=== PATIENT | male | born 1945 | race Caucasian/White ===

== ENCOUNTER → 2020-11-08 | Outpatient (CLI) | payer MEDICARE ==
--- NOTE | 2020-11-08 10:46 | XR ---
EXAMINATION TYPE: XR chest 2V DATE OF EXAM: 11/08/2020 COMPARISON: NONE HISTORY: Shortness of breath TECHNIQUE: Frontal and lateral views of the chest are obtained. FINDINGS: Scattered senescent parenchymal changes noted. Hyperinflation compatible with COPD. No evidence for infiltrate. No evidence for atelectasis. Heart size is stable. Mediastinal structures are stable and grossly unremarkable. No evidence for hilar prominence. Degenerative changes dorsal spine. IMPRESSION: 1. No evidence for acute pulmonary disease.
[2020-11-08 10:51] LABS: Basophils % (A) 0 %; Eosinophils # (A) 0.2 k/uL (0-0.7); Eosinophils % (A) 3 %; HGB 14.4 gm/dL (13.0-17.5); Lymphocytes # (A) 1.5 k/uL (1.0-4.8); Lymphocytes % (A) 22 %; MCH 32.8 pg (25.0-35.0); MCHC 33.5 g/dL (31.0-37.0); MCV 97.8 fL (80.0-100.0); Mean Platelet Volume 9.2; Monocytes # (A) 0.3 k/uL (0-1.0); Monocytes % (A) 5 %; Neutrophils # (A) 4.7 k/uL (1.3-7.7); Neutrophils % (A) 69 %; Platelet Count 178 k/uL (150-450); RBC 4.39 m/uL (4.30-5.90); RDW 12.9 % (11.5-15.5); WBC 6.9 k/uL (3.8-10.6)
[2020-11-08 15:11] LABS: Prothrombin Time 10.8 sec (9.9-11.9)
[2020-11-08 15:13] LABS: Anion Gap 5.2 mmol/L (4.00-12.00); Carbon Dioxide 26.8 mmol/L (21.6-31.8); Potassium 4.9 mmol/L (3.5-5.5)
== END | disposition home or self-care (01) ==
LOC: LABWHC1 09:56
PROVIDERS: ATTEND Orthopaedic Surgery
DX: Z22.322 Carrier or suspected carrier of Methicillin resistant Staphylococcus aureus (principal); M50.222 Other cervical disc displacement at C5-C6 level; Z79.01 Long term (current) use of anticoagulants
CPT/HCPCS: 36415; 71046; 80051; 85025; 85610; 87070

== ENCOUNTER 2020-11-16 06:15 | Day surgery (SDC) | payer MEDICARE ==
[2020-11-12 11:21] VITALS: BMI 28.3
--- NOTE | 2020-11-15 14:20 | P.HPOR ---
History of Present Illness H&P Date: 11/16/20 Chief Complaint: RUE weakness, pain, neck pain Patient presents today for a follow up on his C5-6 stenosis. This is his pre- operative appointment. Patient states that he started to have neck pain about 4 months ago after digging in his yard. He reports right scapular pain that radiates into his neck and radiates down his right upper extremity. He denies any numbness. He completed 5 weeks of physical therapy with some relief. Patient currently is not taking any medication for pain. He was taking motrin and went through a dose pack which also helped him with pain. He denies any issues with fine motor skills. He denies any issues with imbalance, but does state his R arm is weaker now than his L and he is unsure why. Denies any f/c/sob/cp at this time. No bowel or bladder incontinence. No perineal numbness/tingling. The patients' past social, medical, family, surgical history, as well as review of systems, have been reviewed. Please refer to the Neurosurgery History and Physical form that has been scanned in to our electronic medical record system. 14 points review of systems completed and as stated in HPI, all other systems reviewed are negative. Review of Systems 14 points review of systems completed and as stated in HPI, all other systems reviewed are negative. Past Medical History Past Medical History: Diabetes Mellitus, Hyperlipidemia History of Any Multi-Drug Resistant Organisms: None Reported Additional Past Surgical History / Comment(s): vasectomy Past Anesthesia/Blood Transfusion Reactions: No Reported Reaction Past Psychological History: No Psychological Hx Reported Past Alcohol Use History: None Reported Past Drug Use History: None Reported Medications and Allergies Home Medications Medication Instructions Recorded Confirmed Type metFORMIN HCL [Glucophage] 500 mg PO BID 01/27/20 01/27/20 History Allopurinol [Zyloprim] 100 mg PO BID 11/11/20 11/11/20 History Simvastatin [Zocor] 20 mg PO 11/11/20 History lisinopriL [Zestril] 5 mg PO DAILY 11/11/20 11/11/20 History Allergies Allergy/AdvReac Type Severity Reaction Status Date / Time No Known Allergies Allergy Verified 01/27/20 13:40 Physical Examination Osteopathic Statement: *. No significant issues noted on an osteopathic structural exam other than those noted in the History and Physical/Consult. PHYSICAL EXAMINATION: General: Awake, alert, appropriate for age, in no acute distress. HEENT: No unusual neck masses around region of lateral neck triangle, thyroid, supraclavicular groove Heart: Regular rate and rhythm, normal S1, S2 and no murmur/gallop. Lungs: Clear to auscultation bilaterally with no use of accessory muscles. Extremities: Skin warm and dry without acute lesions, coloration, temperature, skin intact, no tenderness or erythema Integument: Hairy patches: Absent Dorsal skin dimples: Absent Cafe au lait spots: Absent Surgical incisions: None Palpation: Please see Pain drawing on Intake sheet for further detail. Midline spinal tenderness: No E6 Paralumbar tenderness: No E6 Parathoracic tenderness: No E6 Buttocks tenderness: No E6 Special findings: None POSTURAL and MUSCULO-SKELETAL EVALUATION: Coronal Balance: Neutral Recumbent testing: Patient is able to lay flat on back Sagittal Balance: Neutral Shoulder Profile: level Pelvic Girdle: level Neck ROM: Unrestricted Lumbar ROM: Unrestricted Shoulder ROM: Symmetric in abduction, ER/IR Hip ROM: Symmetric in abduction, adduction, ER/IR Knee ROM: Symmetric and intact in Flexion / extension Hands: Normal Feet: Normal VASCULAR STATUS : LEFT RIGHT Wrist Pulses intact intact Pedal Pulses (Dors. pedis & post.tibialis) intact intact Color normal normal Edema Absent Absent NEUROLOGIC EXAMINATION: Mental Status: Awake and alert, fully oriented, with normal attention, concentration and memory, and fluent, appropriate speech. Cranial Nerves: I: Olfactory not tested. II: Visual acuity normal, no visual field deficit noted with confrontation. III,IV: Normal pupillary reflexes & intact extraocular movements without nystagmus. V,: Intact symmetrical facial sensation. VII: Intact symmetrical facial motor movement VIII: Hearing intact. IX,X: Intact gag, swallow, & normal voice. XI: Sternocleidomastoid, trapezius function intact. XII: Tongue midline with normal movements. L'hermitte's Sign: Negative / absent Spurling'Sign: Pos on R Cubital percussion test: Absent bilaterally. Trino-Tinel sign - Carpal region: Absent bilaterally. Straight Leg Raising: Absent bilaterally. Crossed straight leg raise: negative O8 MOTOR EXAM (0-5/5, N/T) STRENGTH RIGHT LEFT Shoulder Abd (not part of the EDDIE score) 5 5 Elbow Flexors 5 5 tricep extension 4- 5 Wrist Dorsiflexors 5 5 Finger Abductor 5 5 Law Office Receptionist 4- 5 Hip Flexor (Not part of EDDIE Motor score) 5 5 Knee Flexor 5 5 Knee Extensor 5 5 Ankle dorsiflexor 5 5 Ankle plantarflexion 5 5 Extensor hallucis 5 5 REFLEXES(0-4/2, NT) RIGHT LEFT Upper Extremities 2 2 Lower Extremities 2 2 Pathological Reflexes RIGHT LEFT Cooney's Absent Absent Clonus Absent Absent 2 Muscle appearance: Normal Rectal Tone: Not tested Sensory system (0-4, N/T) Test type RU KAY RL LL Joint-Position 2 2 2 2 Vibration 2 2 2 2 Pain & LT sense 2 2 2 2 Dermatomal Deficit: none none none none Gait and Functional Evaluation: Ambulatory aids: Independent Romberg's test: Intact bilaterally Toe heel walk / heel-toe walk intact while maintaining satisfactory balance? yes Squatting/straightening w/o assistance to a min of 60 degree knee flexion? yes Single leg stance: intact Trendelenburg sign negative bilaterally Hand and finger dexterity intact bilaterally? yes Disdiadochokinesis examination negative bilaterally? yes Results cervical spine x-rays 09/19/2020 from [facility]: overall alignment is maintained in the sagittal as well as coronal planes. There is severe spondylosis at C5 6 with disc collapse in this area. There is anterior disc osteophyte complex. There are no fractures or dislocations noted. Occipital cervical and C1 2 joints appear stable. oblique views demonstrate mild foraminal stenosis which is bony at C5 6. There is mild facet arthrosis and hypertrophy at these levels as well. Cervical spine without contrast MRI 09/21/2020 from [facility]: this demonstrates spondylosis at C5 6 with retrolisthesis at this level. There is a disc osteophyte complex posteriorly which causes moderate to severe canal stenosis as well as foraminal stenosis bilaterally. the remainder of the cervical MRI fails to demonstrate any other levels of compression at this time. There is no myelomalacia. Occipital cervical and C1 2 joints appear stable. Assessment and Plan Assessment: 1. C5-6 severe stenosis due to chronic disc herniation 2. RUE weakness, progressive Plan: Spine Surgery Risk Review Bill Bianchi is a 75 yo younger than stated age active male presenting for evaluation of RUE weakness, radiculopathy and neck pain. It was my pleasure to have seen and examined Bill Bianchi. In our visit today we have had a chance to go over subjective complaints, physical examination findings and treatments including the natural course history without intervention and various interventional options. The patients imaging demonstrates C5-6 chronic disc herniation with severe stenosis central and foraminal. On physical exam, Bill Bianchi demonstrates Weakness in RUE that is progressive as well as mild hyperreflexia. I have explained to the patient that as their condition progresses it will cause further neurological deficits and eventual paralysis. Based on the patients imaging, physical exam, and the rapid progression and disabling nature of their symptoms, at this time I recommend surgery in the form or a: ACDF vs TDR C5-6. I discussed the risk and benefits of this procedure at length with Bill Bianchi . The patient agreed to considered pursuing the procedure abovementioned. Prior to surgery, she should follow up with her PCP (Cardio, ID, IM etc) for clearance. Questions were invited and answered, and the patient wishes to proceed as outlined below. Currently, I am recommendin.C5-6 Total Disc Replacement (TDR) possible ACDF. 2.Follow up with PCP for surgical clearance 3.Review of surgical risks and benefits as well as an educational packet on the proposed surgical procedure. Risks: All surgical procedures come with inherent risks, including those related to positioning, anesthesia, intraoperative findings, and postoperative complications. It is important to understand that surgery does not come with any guarantee of a successful outcome as complications and adverse events are always possible. The patient was given a handout in office today discussing the surgical procedure and risks associated with the intervention, both of which were discussed with the patient. These risks include but are not limited to the following: * Experiencing same, different or even worse symptoms in back, neck, arms, or legs compared to before surgery. Requiring further surgery or other forms of treatment presently or at some time in the future at same or other levels of the intended spine surgery. On an extreme but fortunately relatively rare basis severe complication such as blindness, stroke, heart attack, temporary and/or permanent nerve injury, paralysis, coma, or may occur, sometimes without known explanation. Surgical complications may include but are not limited to risk of infection, fluid accumulation in the surgical dissection site, including a seroma or hematoma, that requires additional surgery, wound drainage, bleeding, new numbness or weakness, vision changes/loss, spinal fluid leakage, non-healing and/or infected incision, headaches, difficulty or inability to swallow, hoarseness, hemopneumothorax, pneumothorax, impotence, retrograde ejaculation, vaginal dryness; injury to nerves, spinal cord, blood vessels, lymphatics or other vital organs (i.e., bowel injury, injury to the great vessels); heterotopic bone formation; complications related to the hardware such as screws, rods, cages including misplaced hardware, device failure, instrumentation at the wrong spine level, hardware fracture/breakage, or hardware loosening; vertebral failure of the spinal column above or below the newly placed hardware; retained surgical instrumentations or devices and the need for further surgery. * Medical risks of the planned spine surgery include but are not limited to generalized Infections to the whole body or local areas outside of the surgical site (sepsis), heart attack, bleeding, anaphylaxis, meningitis, seizure, epilepsy, hearing loss, burn núñez, laceration of the head or other areas of the body, bruising, hypersensitivity of the skin, bladder over distension; allergic reaction; shoulder injury related to positioning; fat, blood and air clots to other areas of the body like heart, lungs, brain; failure of internal organs such as lungs, kidneys, liver and excessive bleeding. If blood transfusions are necessary, note that transfusions may cause intolerance reactions such as anaphylaxis or other complex reactions. Despite best efforts, the results of spine surgery might not heal in terms of bone, soft tissues such as skin, fascia, ligaments, and joints. Additionally, in order to achieve best possible results, spine surgery may be carried out beyond the initially planned levels and involve decompression, fusion including insertion of hardware at levels other than the original intended area of surgical interest change some portions of the procedure in order to ensure the best possible outcomes. With spine surgery and spinal fusion, there are different off label uses of instrumentation (devices, implants and hardware) as well as biological substances (bone morphogenic proteins, demineralized bone matrix) as well as u sing extra bone from allograft sources (i.e. cadaver bone) or autograft (iliac crest bone, ribs, or the spine itself). The patient has been given information about these practices and their inherent risks and benefits. [facility] is an educational center that serves as a training facility for neurosurgical and orthopedic spine residents and fellows. Residents are physicians who are completing their surgical intensive training following medical school. They assist in the operating room with direct supervision of the attending surgeons. [facility] are surgeons who have completed their training and eligible for board certification. They have opted for an elective year of more specialized training in their field. They assist in the operating room under the supervision of the attending surgeons. Physician assistants are medically trained surgical providers who function in the outpatient, inpatient, and operating room setting under the direct supervision of the attending speedy grubbs [facility] has multiple operating rooms with single and overlapping rooms running daily. They currently function under the required guidelines as produced by the [facility] Finance Committee with regards to the overlapping rooms and will continue to comply with changes to this policy as they occur. The requirements include and are complied with as follows: (1) the critical portions of the overlapping rooms will not occur at the same time, (2) the attending physician will be physically present during the critical portions of the procedure and immediately available during the entire case, and (3) a back-up attending is designated should the primary attending not be immediately available. The patient has had a chance to review all the listed information, has been given print outs detailing this information, and has had all his/her questions answered to their satisfaction. It was my pleasure to have seen and examined Bill Bianchi. In our visit today we have had a chance to go over my understanding of our patient's current condition, the natural course history without intervention and various interventional options. Questions were invited and answered, and the patient wishes to proceed as outlined above. I have seen and examined the patient for 25 minutes and we have spent more than 50% of the time in repeat and detailed counseling about the patient's condition, its natural course history with out and as much as can be predicted with surgery and re-review of various surgical treatment options. In conclusion, Bill Bianchi requested we proceed with the above suggested surgery and are willing to accept risks and limitations of the suggested surgery as nature of the disease process and our best attempts at treatment for the condition. Thank you again for allowing us to be part of your patient's care. Please don't hesitate to contact me if you have any further questions. Signed and authenticated by: Signed and authenticated by: Karlos Cruz DO [facility] [address] [facility], [address] [address]
[~2020-11-16 06:15] MED LIST: ACETAMINOPHEN TAB 500 MG TAB PO PRN; GABAPENTIN 300 MG CAP PO PRN; LIDOCAINE 1% (10MG/ML) FOR IV START INTRADERMA PRN; ONDANSETRON 4 MG/2 ML VIAL IVP ONE; ONDANSETRON 4 MG/2 ML VIAL IVP PRN
[2020-11-16 06:58] LABS: Glucose,Whole Blood 146 mg/dL (75-99)
[2020-11-16] MEDS: LACTATED RINGERS 1,000 ML IV SCH (07:04)
[2020-11-16] MEDS ORDERED: PHENYLEPHRINE 10 MG/ML VIAL ONE (07:33)
[2020-11-16] MEDS ORDERED: MIDAZOLAM 2 MG/2 ML VIAL ONE (07:33)
[2020-11-16] MEDS ORDERED: DEXAMETHASONE SOD PHOSPHATE 10 MG/ML 1 ML VIAL ONE (07:33)
[2020-11-16] MEDS ORDERED: fentaNYL (PF) 50 MCG/ML 2 ML AMP ONE (07:33)
[2020-11-16] MEDS ORDERED: PROPOFOL 10 MG/ML 20 ML VIAL IV ONE (07:33)
[2020-11-16] MEDS ORDERED: KETOROLAC 15 MG/ML 1 ML VIAL ONE (07:33)
[2020-11-16] MEDS ORDERED: HYDROmorphone (PF) 1 MG/ML ONE (07:33)
[2020-11-16] MEDS ORDERED: LIDOCAINE 1% INJ 10MG/ML (20 ML MDV) ONE (07:33)
[2020-11-16] MEDS ORDERED: SUCCINYLCHOLINE CHLORIDE 100 MG/5 ML SYR IV ONE (07:33)
[2020-11-16] MEDS ORDERED: ePHEDrine SULFATE/0.9% NACL/PF 50 MG/5 ML SYRINGE IV ONE (07:33)
[2020-11-16] MEDS ORDERED: LACTATED RINGERS 1,000 ML IV ONE ×2 (08:02→10:36)
[2020-11-16] MEDS ORDERED: LIDOCAINE 2%-EPI 1:100,000 20 ML VIAL SQ ONE ×2 (08:37)
[2020-11-16] MEDS ORDERED: GELATIN SPONGE,ABSORB (LARGE) 1 EACH SPONGE MISCELLANE ONE (08:37)
[2020-11-16] MEDS ORDERED: THROMBIN (BOVINE) 5,000 UNIT VIAL TOPICAL ONE (08:37)
[2020-11-16] MEDS ORDERED: ceFAZolin 1,000 MG in SODIUM CHLORIDE 0.9% 1,000 ML IRRIGATION ONE (08:54)
--- NOTE | 2020-11-16 10:58 | FL ---
Fluoroscopy HISTORY: Cervical stenosis 126 seconds fluoroscopy time supplied to the referring clinician. 7 intraoperative C-arm images docu ment the procedure. See dictated report from orthopedic surgery.
--- NOTE | 2020-11-16 11:05 | XR ---
Limited cervical spine HISTORY: Cervical stenosis 7 intraoperative C-arm images document the procedure
[2020-11-16] MEDS ORDERED: HYDROmorphone 0.5 MG/0.5 ML SYRINGE IVP PRN (11:09)
[2020-11-16] MEDS ORDERED: HYDROcodone/APAP 5-325MG 1 EACH TAB PO PRN ×2 (11:12)
[2020-11-16] MEDS ORDERED: CYCLOBENZAPRINE 10 MG TAB PO PRN (11:12)
[2020-11-16] MEDS: HYDROmorphone 0.5 MG/0.5 ML SYRINGE IVP PRN ×4 (11:19→12:15)
[2020-11-16 11:23] LABS: Glucose,Whole Blood 209 mg/dL (75-99)
--- NOTE | 2020-11-16 11:28 | P.PN ---
Progress Note - Text Progress Note Date: 11/16/20 Spine Post Op note Pt s/e in PACU. Waking up, VSS, talking with normal voice. Pain is controlled. Moving all 4 ext with good strength. Will transfer to floor when more awake and stable per PACU staff and anesthesia.
[2020-11-16] MEDS ORDERED: INSULIN ASPART (NovoLOG) 100 UNIT/ML VIAL SQ ONE (11:46)
[2020-11-16] MEDS ORDERED: DEXAMETHASONE SOD PHOSPHATE 4 MG/ML 1 ML VIAL IV PRN (15:00)
[2020-11-16] MEDS: GABAPENTIN 300 MG CAP PO SCH ×2 (16:40→21:29)
[2020-11-16 16:58] LABS: Glucose,Whole Blood 256 mg/dL (75-99)
--- NOTE | 2020-11-16 19:21 | XR ---
EXAMINATION TYPE: XR cervical spine limited DATE OF EXAM: 11/16/2020 COMPARISON: 08/30/2020 HISTORY: Postop. Neck pain. TECHNIQUE: 3 views FINDINGS: There is disc prosthesis at C5-6. Vertebra have fairly normal alignment. The posterior lower [place] ents are intact. There are no cervical ribs. IMPRESSION: Disc prosthesis at C5-6. No fracture seen. No adverse change compared to old exam of 08/30.
[2020-11-16 21:12] LABS: Glucose,Whole Blood 358 mg/dL (75-99)
[2020-11-16] MEDS: INSULIN ASPART (NovoLOG) 100 UNIT/ML VIAL SQ SCH (21:29)
--- NOTE | 2020-11-16 21:53 | P.CONS ---
History of Present Illness - Reason for Consult Consult date: 11/16/20 - History of Present Illness Patient is 75-year-old male with a PMH of type II DM, hypertension, gout, and hyperlipidemia who presented to the emergency room for elective cervical spine discectomy and fusion. The patient underwent the procedure earlier today with no immediate postoperative palpitations. He was seen postoperatively . He reported excellent control of his pain, currently at a 1 out of 10. He denied any additional complaints. He denied chest discomfort, shortness of breath, fever, chills, cough, nausea, vomiting, abdominal pain. He reports compliance with medications at home. Reports that he has been up and out of bed with assistance. Has passed urine but has not had a bowel movement as of yet. Review of Systems Pertinent positives and negatives as discussed in HPI, a complete review of systems was performed and all other systems are negative. Past Medical History Past Medical History: Diabetes Mellitus, Hyperlipidemia History of Any Multi-Drug Resistant Organisms: None Reported Additional Past Surgical History / Comment(s): vasectomy Past Anesthesia/Blood Transfusion Reactions: No Reported Reaction Past Psychological History: No Psychological Hx Reported Smoking Status: Former smoker Past Alcohol Use History: None Reported Additional Past Alcohol Use History / Comment(s): STARTED SMOKING AT 15 QUIT 1972 SMOKED 1PPD OR LESS Past Drug Use History: None Reported - Past Family History Mother Family Medical History: No Reported History Brother(s) Family Medical History: Cancer Medications and Allergies Home Medications Medication Instructions Recorded Confirmed Type Allopurinol [Zyloprim] 100 mg PO HS 11/11/20 11/12/20 History Simvastatin [Zocor] 20 mg PO HS 11/11/20 11/12/20 History lisinopriL [Zestril] 5 mg PO DAILY 11/11/20 11/12/20 History Pioglitazone [Actos] 15 mg PO DAILY 11/12/20 11/12/20 History metFORMIN HCL [Glucophage] 500 mg PO BID 11/12/20 11/12/20 History Allergies Allergy/AdvReac Type Severity Reaction Status Date / Time No Known Allergies Allergy Verified 11/16/20 07:00 Physical Exam Vitals: Vital Signs Temp Pulse Pulse Resp BP BP Pulse Ox 11/16/20 20:13 97.7 F 124 H 19 148/76 95 11/16/20 16:55 123 H 125/67 97 11/16/20 15:55 113 H 134/69 96 11/16/20 14:55 102 H 143/81 98 11/16/20 14:25 111 H 149/82 98 11/16/20 14:10 16 11/16/20 13:55 114 H 153/89 96 11/16/20 13:40 105 H 148/81 96 11/16/20 13:28 111 H 149/82 95 11/16/20 13:10 97.0 F L 108 H 16 154/84 95 11/16/20 12:45 98 16 158/84 100 11/16/20 12:30 110 H 16 157/85 100 11/16/20 12:15 98 16 152/76 97 11/16/20 12:00 102 H 16 177/70 97 11/16/20 11:45 97 16 155/69 100 11/16/20 11:30 97 16 150/76 99 11/16/20 11:15 95 16 146/76 100 11/16/20 11:00 95 16 137/71 98 11/16/20 10:50 96.9 F L 91 10 L 121/60 96 11/16/20 06:54 96.8 F L 90 16 165/77 100 Intake and Output 11/16/20 11/16/20 11/16/20 06:59 14:59 22:59 Intake Total 2451 680 Output Total 15 Balance 2436 680 Intake: IV 2451 Oral 480 Other 200 Output: Estimated Blood Loss 15 Other: Weight 91.6 kg 91.6 kg General: non toxic, in a c-collar, no distress, appears at stated age, normal weight Derm: no unusual rashes/lesions no unusual ecchymoses, warm, dry Head: atraumatic, normocephalic, symmetric Eyes: EOMI, no lid lag, anicteric sclera, pupils equal round reactive to light ENT: Nose and ears atraumatic, no thrush, no pharyngeal erythema Neck: C-collar in place Mouth: no lip lesion, mucus membranes moist Cardiovascular: S1S2 reg, no murmur, positive posterior tibial pulse bilateral, no edema, capillary refill less than 2 seconds Lungs: CTA bilateral, no rhonchi, no rales , no accessory muscle use Abdominal: soft, nontender to palpation, no guarding, no appreciable organomegaly, normal bowel sounds Ext: no gross muscle atrophy, muscle strength 5 out of 5 in all 4 extremities grossly, no contractures, Neuro: CN II-XI grossly intact, light touch intact all 4 extremities, finger to nose within normal limits, Psych: Alert, oriented, appropriate affect Results Labs: Abnormal Lab Results - Last 24 Hours (Table) 11/16/20 11/16/20 11/16/20 Range/Units 06:56 11:18 16:56 POC Glucose (mg/dL) 146 H 209 H 256 H (75-99) mg/dL 11/16/20 Range/Units 21:08 POC Glucose (mg/dL) 358 H (75-99) mg/dL Assessment and Plan Plan: Type II DM with hyperglycemia -Lispro insulin sliding scale but glucose monitoring -Levemir 10 units daily at bedtime -Check A1c Hypertension -Continue with home lisinopril Hyperlipidemia and gout -Continue with home Zocor and allopurinol Status post cervical spine fusion -Management including pain control as per the surgery service
[2020-11-16] MEDS ORDERED: allopurinoL 100 MG TAB PO SCH (22:00)
[2020-11-16] MEDS ORDERED: ATORVASTATIN 10 MG TAB PO SCH (22:00)
[2020-11-16] MEDS ORDERED: INSULIN DETEMIR (LEVEMIR) 100 UNIT/ML SYR SQ SCH (22:00)
[2020-11-17 02:12] VITALS: PULSE 107; RESP 17
[2020-11-17 05:05] LABS: Basophils % (A) 0 %; Eosinophils % (A) 0 %; HCT 38.6 % (39.0-53.0); HGB 13.2 gm/dL (13.0-17.5); Lymphocytes # (A) 0.8 k/uL (1.0-4.8); Lymphocytes % (A) 6 %; MCH 32.7 pg (25.0-35.0); MCHC 34.2 g/dL (31.0-37.0); MCV 95.7 fL (80.0-100.0); Mean Platelet Volume 8.8; Monocytes # (A) 0.6 k/uL (0-1.0); Monocytes % (A) 4 %; Neutrophils # (A) 12.3 k/uL (1.3-7.7); Neutrophils % (A) 89 %; Platelet Count 178 k/uL (150-450); RBC 4.03 m/uL (4.30-5.90); RDW 12.9 % (11.5-15.5); WBC 13.9 k/uL (3.8-10.6)
[2020-11-17] MEDS: LACTATED RINGERS 1,000 ML IV SCH (07:10)
[2020-11-17] MEDS: INSULIN ASPART (NovoLOG) 100 UNIT/ML VIAL SQ SCH ×2 (07:54→12:08)
[2020-11-17 08:13] LABS: Glucose,Whole Blood 145 mg/dL (75-99)
--- NOTE | 2020-11-17 08:34 | P.PN ---
Subjective Progress Note Date: 11/17/20 Principal diagnosis: C5-6 strenosis with RUE weakness Patient seen and examined this morning sitting up in bed eating breakfast. He states he is feeling fairly well. He denies any fevers chills shortness of breath or chest pain. He denies any symptoms overnight. He does have some neck pain but it seems to be getting better. He does complain of a small amount and numbness around his left thumb but this is gotten better overnight and likely related to positioning. He has no other complaints currently. Objective - Vital Signs Vital signs: Vital Signs Temp 98.0 F 11/17/20 01:12 Pulse 107 H 11/17/20 07:26 Resp 17 11/17/20 07:26 BP 138/76 11/17/20 01:12 Pulse Ox 95 11/17/20 01:12 Intake & Output 11/16/20 11/17/20 11/17/20 18:59 06:59 18:59 Intake Total 3131 75 Output Total 15 100 100 Balance 3116 -25 -100 Weight 91.6 kg Intake: IV 2451 Oral 480 75 Other 200 Output: Emesis 100 100 Estimated Blood Loss 15 Other: Voiding Method Urinal # Voids 2 2 - Exam GEN: AOX3, NAD VSS Inspection: Appears well no swelling about the incision patient is wearing a soft collar Palpation: No tenderness to palpation of the anterior neck. No hematoma noted. Mild swelling. Motor: 5/5 shoulder abd/EF/EE/WF/intrinsics patient continues to have 4 minus strength in triceps on the right which is not changed from preop yet. 5/5 DF/PF/EHL/FHL/HF/KE/KF Reflexes: 2/4 DTR all upper and LE Sensation intact to light touch in C5-T1 as well as L2-S1 distribution Cooney's: Negative bilaterally Clonus: . Negative Bilaterally Babinski: Negative bilaterally Incision: Clean dry and intact no erythema or ecchymosis or edema no drainage no fluctuance Dressing: Clean dry and intact Cranial nerves II through XII are grossly intact - Labs CBC & Chem 7: 11/17/20 04:35 Labs: Abnormal Lab Results - Last 24 Hours (Table) 11/16/20 11/16/20 11/16/20 Range/Units 11:18 16:56 21:08 WBC (3.8-10.6) k/uL RBC (4.30-5.90) m/uL Hct (39.0-53.0) % Neutrophils # (1.3-7.7) k/uL Lymphocytes # (1.0-4.8) k/uL POC Glucose (mg/dL) 209 H 256 H 358 H (75-99) mg/dL 11/17/20 11/17/20 Range/Units 04:35 07:53 WBC 13.9 H (3.8-10.6) k/uL RBC 4.03 L (4.30-5.90) m/uL Hct 38.6 L (39.0-53.0) % Neutrophils # 12.3 H (1.3-7.7) k/uL Lymphocytes # 0.8 L (1.0-4.8) k/uL POC Glucose (mg/dL) 145 H (75-99) mg/dL Assessment and Plan Assessment: 75-year-old male postop day 1 C5 6 total disc replacement 1. C5-6 severe stenosis due to chronic disc herniation 2. RUE weakness, progressive Plan: -Appreciate medicine management. -Pain control: Currently adequate -Aggressive ambulation protocol. OOB with all meals. OOB or in chair 4-5x daily. -PT/OT -TEDs, SCDs, mechanical ppx. OK for heparin today. Early ambulation is best. -GI ppx. -X-rays reviewed shows good placement of cervical 56 disc replacement -Trend labs. -Dispo: Home today
[2020-11-17] MEDS ORDERED: INDOMETHACIN 25 MG CAP PO SCH (09:00)
[2020-11-17] MEDS ORDERED: lisinopriL 5 MG TAB PO SCH (09:00)
[2020-11-17] MEDS ORDERED: DOCUSATE 100 MG CAP PO SCH (09:00)
[2020-11-17] MEDS ORDERED: polyethylene glycoL 3350 17 GM POWD.PACK PO SCH (09:00)
[2020-11-17] MEDS: GABAPENTIN 300 MG CAP PO SCH (09:01)
[2020-11-17 09:16] VITALS: BP 133/75; TEMP 97.6
--- NOTE | 2020-11-17 09:50 | P.OP ---
Date of Procedure: 11/16/20 Preoperative Diagnosis: 1. C5-6 HNP with stenosis, and radiculopathy 2. Progressive RUE weakness Postoperative Diagnosis: 1. C5-6 HNP with stenosis, and radiculopathy 2. Progressive RUE weakness Procedure(s) Performed: 1. C5-6 total disc replacement 2. Use of intraoperative microscope Implants: Pro Disc C Size: 16 x 17 x 6 mm Anesthesia: GETA Surgeon: Karlos Cruz Public Safety Director #1: Dhaval Lowery (SATISH Ash was present for the entire case and necessary due to the complexity of the case. ) Estimated Blood Loss (ml): 20 IV fluids (ml): 1,500 Urine output (ml): 0 Pathology: none sent Condition: stable Disposition: PACU Indications for Procedure: Patient presents today for a follow up on his C5-6 stenosis. This is his pre- operative appointment. Patient states that he started to have neck pain about 4 months ago after digging in his yard. He reports right scapular pain that radiates into his neck and radiates down his right upper extremity. He denies a ny numbness. He completed 5 weeks of physical therapy with some relief. Patient currently is not taking any medication for pain. He was taking motrin and went through a dose pack which also helped him with pain. He denies any issues with fine motor skills. He denies any issues with imbalance, but does state his R arm is weaker now than his L and he is unsure why. Denies any f/c/sob/cp at this time. No bowel or bladder incontinence. No perineal numbness/tingling. Operative Findings: Partially sclerosed C5-6 joint with large anterior osteophytes, collapse and ret rolisthesis. Large posterior disc herniation C5-6 impinging on the R central and neural foramen. Description of Procedure: The patient was seen and examined in the preoperative area. All preoperative protocols were followed. Informed consent was obtained risks and benefits of the procedure were discussed at length. Risks including bleeding infection damage to the surrounding tissue and risk of reoperation were discussed with the patient. Risk of anesthesia up to and including was a discussed with the patient. These are outlined in the risk review. They were willing to accept these risks and all of the risks of surgery. The patient was given a weight- based dose of antibiotics in the form of 2 g Ancef IVPB 1. The patient was seen and evaluated by the anesthesia team who deemed them fit for surgery. The site was marked, the patient was willing to proceed with the procedure. The patient was transferred to the operative suite by the Department of anesthesia. They were then drifted off to sleep by the department anesthesia Gen. endotracheal intubation. The patient tolerated this well. Once confirmation of lines and ventilation the patient was transferred to a supine flat Raji table very carefully. All bony prominences including wrists, elbows, axilla, chest, hips, and thighs, and feet were padded very well. Special attention was paid to the genitalia and these were padded accordingly. SCDs were placed on bilateral lower extremities and were connected. Arms were well padded and placed tucked next to the patient's body and secured in place with a draw sheet and tape. Bump was placed in the shoulders as well as a buttress underneath the neck for good extension and support. Head was placed on a jelly donut. Bilateral shoulders were then taped down to allow visualization of the cervical spine the x-ray. Once in position, again we confirmed good ventilation capabilities and that lines were running appropriately. Neural monitoring leads were placed by intraoperative neuro monitoring personnel. The patient's anterior cervical spine was then exposed. 1010s were placed outlining the incision site. Standard alcohol was used to clean the incision site and allowed to dry. C-arm was used to biomark the patient and confirm level for incision which was marked with a skin marker. Operative briefing was performed with all teams and everyone in agreement to proceed. The patient was then prepped and draped in a normal sterile fashion. Timeout was then performed and all parties were in agreement with the procedure to be performed. The area was then infiltrated with 1% lidocaine with epinephrine. Skin incision was then made using a 10 blade transverse over the previously marked skin incision on the right-hand side of the patient's neck. Subcu dissection was done with the Michelle scissors and Suraj. The platysmal muscle was identified. This was then freed distally as well as caudally medially and laterally for good visualization. Transverse incision across the platysmal muscle was then made using electrocautery. This exposed the interval between the strap muscles and the SCM. This interval was exposed and visualized. Kitners were then used along with a hand-held Cloward for dissection through this interval making sure to stay medial to the carotid sheath. Palpation confirmed this. The esophagus and trachea were then carefully mobilized and taken medially to allow exposure of the deep cervical fascia. Deep cervical fascia was then visualized and cleaned using a Kitner. Once complete mobilization was accomplished the shadow line retractor blades were selected and put into place. This allowed good visualization of the anterior cervical spine and the anterior longitudinal ligament. A [place] 4 was then used to toby the area and lateral fluoroscopy taken to confirm the C5 6 level once this was confirmed was marked with a Bovie. Subperiosteal dissection of the anterior longitudinal ligament as well as the longissimus coli muscles then ensued around the C5-C6 region. The anterior portion of C5 and C6 were exposed taking care to visualize both uncovertebral joints completely. Once these lunges coli flaps were made in the shadow line retractor was replaced deep to these to allow good visualization. This was then locked in place and secured to the bed with that arm. [place] distractor pins were then placed in the C5 and C6 vertebral bodies parallel to the endplates to allow for parallel distraction. The lamina administrative coordinator was then placed under lateral fluoroscopy and expanded to allow for parallel distraction. Discectomy then ensued using Destinee Raz as well as curettes to remove disc material as well as the cartilaginous endplates. Care was taken to release both uncovertebral joints completely bilaterally. And to ensure good visualization from uncovertebral joint to uncovertebral joint. This was taken down to the PLL and once the PLL was visualized and identified a 60 up-biting curette was used to access the spinal canal posterior to the PLL. The PLL was then released. There was a large disc herniation noted on the right-hand side posteriorly which was then removed using 2 and 3 Kerrison rongeurs. The PLL was released entirely and bilateral foraminotomies performed. The superior endplate of C5 posteriorly was then drilled out with a high-speed bur to allow for flat endplate in this area. Care was taken not to resect or to damage the endplates in this area. Lateral fluoroscopy confirmed good position and placement. Once the PLL was resected and the foraminotomies performed bilaterally using Kerrison rongeurs meticulous hemostasis was performed. Copious irrigation was used within the disc space. Anterior osteophytes were removed with a rongeur and these were then covered with bone wax to prevent bleeding. Sizing trial was then selected for the Prodisc C and placed. Once in place AP and lateral fluoroscopy confirmed good placement posteriorly as well as midline. The milling jig was then placed over the trial and high-speed mill was done under pulse fluoroscopy first of the C5 endplate. A pin was then placed into this area and the C6 endplate was then milled. Once milling complete the milling jig was removed and the trial removed. The milled endplates were then cleaned with a 60 up-biting curette wallpaper cleaner and a #1 Kerrison. The final implant was then selected and under lateral fluoroscopy was impacted into place atraumatically. This was then confirmed under AP and lateral fluoroscopy to be in good position. The i mpaction jig was then removed and a impaction tamp was then used to further seat the C5 endplate more posteriorly which allowed for better fit. This was done under lateral fluoroscopy. The area was then inspected bone wax was placed over open bone edges as well as over the keel areas. FloSeal was placed in the lateral gutters. [place] pins were then removed and bone wax placed in the void. The area was then inspected again and there was no bony bleeding there was no bleeding from the epidural space. The retractors were then removed and hand- held Cloward was used to again inspected the esophagus there was no damage to the esophagus or the trachea. There is no damage to the carotid sheath. FloSeal was again placed deep within the wound. The wound was then closed first with 3-0 Vicryl in the platysma muscle which approximated very well. This is followed by the subcu tissue with 3-0 Vicryl followed by a 4-0 Monocryl in the skin which was then covered with skin glue. The area was then dressed sterilely with Telfa 4 x 4's and a Tegaderm. Neuro monitoring was run throughout the case and there were no changes in neuro monitoring. Motors were obtained and were stable at the end of the case. The patient was transferred back to his hospital bed atraumatically. Patient was then awakened and extubated by the department of anesthesia having tolerated the procedure very well with no complications. He was transferred to the postoperative care unit in stable condition.
[2020-11-17 11:09] LABS: Glucose,Whole Blood 236 mg/dL (75-99)
--- NOTE | 2020-11-17 12:59 | P.PN ---
Subjective Progress Note Date: 11/17/20 Principal diagnosis: CC: neck pain Patient says that he worked well with physical therapy.he is not complaining of any significant neck pain. He is looking forward to going home. Objective - Vital Signs Vital signs: Vital Signs Temp 97.6 F 11/17/20 07:00 Pulse 107 H 11/17/20 07:26 Resp 17 11/17/20 07:26 BP 133/75 11/17/20 07:00 Pulse Ox 94 L 11/17/20 07:00 Intake & Output 11/16/20 11/17/20 11/17/20 18:59 06:59 18:59 Intake Total 3131 75 Output Total 15 100 100 Balance 3116 -25 -100 Weight 91.6 kg Intake: IV 2451 Oral 480 75 Other 200 Output: Emesis 100 100 Estimated Blood Loss 15 Other: Voiding Method Urinal # Voids 2 2 - Exam General examination - Alert and Oriented 3 in NAD HEENT: neck brace Heart - + S1S2 no murmurs Lungs - Clear to auscultation Abdomen soft NT ND +ve BS Extremities - No edema ORAL SURGERY ASSISTANT - Moving all 4 extremities spontaneously Psych - Calm and cooperative - Labs CBC & Chem 7: 11/17/20 04:35 Labs: Abnormal Lab Results - Last 24 Hours (Table) 11/16/20 11/16/20 11/17/20 Range/Units 16:56 21:08 04:35 WBC 13.9 H (3.8-10.6) k/uL RBC 4.03 L (4.30-5.90) m/uL Hct 38.6 L (39.0-53.0) % Neutrophils # 12.3 H (1.3-7.7) k/uL Lymphocytes # 0.8 L (1.0-4.8) k/uL POC Glucose (mg/dL) 256 H 358 H (75-99) mg/dL 11/17/20 11/17/20 Range/Units 07:53 11:07 WBC (3.8-10.6) k/uL RBC (4.30-5.90) m/uL Hct (39.0-53.0) % Neutrophils # (1.3-7.7) k/uL Lymphocytes # (1.0-4.8) k/uL POC Glucose (mg/dL) 145 H 236 H (75-99) mg/dL Assessment and Plan Assessment: Type II DM with hyperglycemia -Lispro insulin sliding scale but glucose monitoring -Levemir 10 units daily at bedtime -Patient will follow-up hemoglobin A1c with PCP Hypertension -Continue with home lisinopril Hyperlipidemia and gout -Continue with home Zocor and allopurinol Status post cervical spine fusion -Management including pain control as per the surgery service Patient is stable for discharge from a medical standpoint
[2020-11-17 16:46] LABS: Hemoglobin A1C 7.7 % (4.0-6.0)
== END 2020-11-17 15:00 | disposition home or self-care (01) ==
LOC: OR 06:15 → 5NMEDONC 10:50 → OR 11-17 15:00
PROVIDERS: ATTEND Orthopaedic Surgery
DX: M50.122 Cervical disc disorder at C5-C6 level with radiculopathy (principal); M48.02 Spinal stenosis, cervical region; M25.78 Osteophyte, vertebrae; I12.9 Hypertensive chronic kidney disease with stage 1 through stage 4 chronic kidney disease, or unspecified chronic kidney disease; E11.65 Type 2 diabetes mellitus with hyperglycemia; E11.22 Type 2 diabetes mellitus with diabetic chronic kidney disease; N18.9 Chronic kidney disease, unspecified; N40.0 Benign prostatic hyperplasia without lower urinary tract symptoms; E78.5 Hyperlipidemia, unspecified; M10.9 Gout, unspecified; Z79.4 Long term (current) use of insulin; Z79.899 Other long term (current) drug therapy; Z98.52 Vasectomy status; Z87.891 Personal history of nicotine dependence; Z80.9 Family history of malignant neoplasm, unspecified
CPT/HCPCS: 97162; 85025; 83036; 72040; 22856; L0120; C1713; C1762; J2250; J1100; J2370; J0690 ×3; J2405; J2001; J3010; J1170 ×2; J1885; J0330; J2704; 86850; 86900; 86901